=== PATIENT | female | born 1960 | race Caucasian/White ===

== ENCOUNTER 2018-11-29 08:41 | Outpatient (CLI) | payer OTHER ==
--- NOTE | 2018-11-29 11:11 | BD ---
BONE DENSITOMETRY: Indication: Post-menopausal osteoporosis screening. Lumbar Spine: BMD (g/cm2) L1 1.006 T-Score: 0.1 L2 1.203 T-Score: 1.6 L3 1.343 T-Score: 2.4 L4 1.169 T-Score: 1.0 L1-L4 1.182 T-Score: 1.2 Femoral Neck: 0.665 T-Score: -1.7 Total Femur: 0.756 T-Score: -1.5 Impression: 1. Bone mineral density of the femoral neck indicates osteopenia. 2. Bone mineral density of the lumbar spine within normal range. 10-year fracture risk: Major osteoporotic fracture: 9.6% Hip fracture: 1.0% POS: OFF
== END 2018-11-29 08:42 | disposition home or self-care (01) ==
LOC: BICMAMMO 08:41
PROVIDERS: ATTEND Student in an Organized Health Care Education/Training Program
DX: Z13.820 Encounter for screening for osteoporosis (principal); M85.859 Other specified disorders of bone density and structure, unspecified thigh
CPT/HCPCS: 77080

== ENCOUNTER 2019-09-25 12:52 | Emergency (ER) | payer OTHER ==
[2019-09-25] MEDS ORDERED: Ibuprofen 200 MG TAB ONE (13:20)
--- NOTE | 2019-09-25 13:40 | RAD ---
XR Foot Rt 3 View STANDARD INDICATION: Right foot pain after stepping off curb and feeling a pop in the right foot COMPARISON: None. FINDINGS: Bones: No acute fracture identified. Joints: There is osteoarthrosis involving the IP joints of the right foot. Lisfranc alignment: Lisfranc alignment appears within normal limits. Soft tissues: No soft tissue injury demonstrated. No radiographic foreign body demonstrated. IMPRESSION: No acute osseous abnormality.
== END 2019-09-25 14:30 | disposition home or self-care (01) ==
LOC: ERS 12:52
DX: S90.01XA Contusion of right ankle, initial encounter (principal); M79.671 Pain in right foot; F41.9 Anxiety disorder, unspecified; W10.1XXA Fall (on)(from) sidewalk curb, initial encounter

== ENCOUNTER 2021-02-12 09:54 | Emergency (ER) | payer OTHER ==
[2021-02-12] MEDS ORDERED: Fluorescein Opthalmic Strip ONE (11:45)
[2021-02-12] MEDS ORDERED: Proparacaine 0.5% Opth 15 ML BOT ONE (11:45)
== END 2021-02-12 12:35 | disposition home or self-care (01) ==
LOC: ERS 09:54
DX: H10.9 Unspecified conjunctivitis (principal)
CPT/HCPCS: 99283

== ENCOUNTER 2021-02-22 12:02 | Emergency (ER) | payer OTHER | END 2021-02-22 13:08 | disposition home or self-care (01) | LOC: ERS 12:02 | DX: H57.89 Other specified disorders of eye and adnexa (principal); Z79.899 Other long term (current) drug therapy | CPT/HCPCS: 99282 ==

== ENCOUNTER 2022-06-01 14:36 | Emergency (ER) | payer OTHER ==
[~2022-06-01 14:36] MED LIST: Iopamidol-370 76% 500 ML 1 ML ONE
[2022-06-01 15:21] LABS: #Basophils 0.1 thou/uL (0.0-0.2); #Eosinphils 0.2 thou/uL (0.0-0.7); #Monocytes 0.6 thou/uL (0.11-0.59); #Neutrophils 5.1 thou/uL (1.40-6.50); %Eosinophils 1.8 % (0.0-10.0); %Lymphocytes 33.7 % (21.0-51.0); %Monocytes 6.8 % (0.0-10.0); %Neutrophils 56.8 % (42.0-75.0); Hemoglobin 16.5 g/dL (12.0-16.0); Mean Corpuscular HGB CONC 33.2 g/dL (32.0-36.0); Mean Platelet Volume 10.1 fL (7.4-10.4); Platelet Count 189 10x3/uL (130-400); RBC Distribution Width 12.3 % (11.5-14.5); Red Blood Cell (RBC) Count 4.85 mill/uL (4.20-5.40)
[2022-06-01] MEDS ORDERED: Ketorolac Tromethamine 30 MG/ML VIAL ONE (15:37)
[2022-06-01 15:42] LABS: ALT (SGPT) 19 U/L (8-55); AST (SGOT) 17 U/L (5-34); Albumin 4.3 g/dL (3.4-4.8); Alkaline Phosphatase 71 U/L (40-110); Anion Gap 14 mmol/L (10-20); BUN (Urea Nitrogen) 21 mg/dL (9.8-20.1); Bilirubin, Total 0.5 mg/dL (0.2-1.2); Calc. Creatinine Clearance 0 mL/min (70-130); Calcium 9.6 mg/dL (7.8-10.44); Carbon Dioxide 23 mmol/L (23-31); Chloride 107 mmol/L (98-107); Estimated GFR 100; Globulin 2.6 g/dL (2.4-3.5); Glucose 94 mg/dL (80-115); Potassium 3.9 mmol/L (3.5-5.1); Protein, Total 6.9 g/dL (5.8-8.1); Sodium 140 mmol/L (136-145)
== END 2022-06-01 17:06 | disposition home or self-care (01) ==
LOC: ERS 14:36
DX: M54.12 Radiculopathy, cervical region (principal); W10.8XXA Fall (on) (from) other stairs and steps, initial encounter
CPT/HCPCS: 71260; 72125; 74177; 80053; 85025; 96374; J1885; Q9967

== ENCOUNTER 2022-08-17 11:05 | Outpatient (CLI) | payer OTHER | END 2022-08-17 11:06 | disposition home or self-care (01) | LOC: BICCT 11:05 | PROVIDERS: ATTEND Specialist | DX: J32.9 Chronic sinusitis, unspecified (principal); J34.89 Other specified disorders of nose and nasal sinuses ==

== ENCOUNTER 2023-01-21 09:41 | Outpatient (CLI) | payer OTHER | END 2023-01-21 09:42 | disposition home or self-care (01) | LOC: BICCT 09:41 | PROVIDERS: ATTEND Student in an Organized Health Care Education/Training Program | DX: R91.1 Solitary pulmonary nodule (principal); K44.9 Diaphragmatic hernia without obstruction or gangrene; N20.0 Calculus of kidney; J43.9 Emphysema, unspecified; J47.9 Bronchiectasis, uncomplicated | CPT/HCPCS: 71250 ==

== ENCOUNTER 2023-08-10 12:35 | Outpatient (CLI) | payer OTHER | END 2023-08-10 12:36 | disposition home or self-care (01) | LOC: BICCT 12:35 | PROVIDERS: ATTEND Internal Medicine | DX: R91.1 Solitary pulmonary nodule (principal) | CPT/HCPCS: 71250 ==

== ENCOUNTER 2023-08-18 12:30 | Outpatient (CLI) | payer OTHER | END 2023-08-18 12:31 | LOC: PET 12:30 | PROVIDERS: ATTEND Internal Medicine | DX: R91.1 Solitary pulmonary nodule (principal) | CPT/HCPCS: 78815; A9552 ==

== ENCOUNTER 2023-08-26 08:40 | Day surgery (SDC) | payer OTHER ==
[2023-08-26 08:58] LABS: #Basophils 0.1 thou/uL (0.0-0.2); #Eosinphils 0.3 thou/uL (0.0-0.7); #Monocytes 0.5 thou/uL (0.11-0.59); #Neutrophils 3.6 thou/uL (1.40-6.50); %Basophils 0.9 % (0.0-1.0); %Eosinophils 4.4 % (0.0-10.0); %Lymphocytes 34.1 % (21.0-51.0); %Monocytes 6.7 % (0.0-10.0); %Neutrophils 53.2 % (42.0-75.0); Hematocrit 47.9 % (36.0-47.0); Hemoglobin 16.5 g/dL (12.0-16.0); Mean Corpuscular HGB CONC 34.4 g/dL (32.0-36.0); Mean Corpuscular Hemoglobin 34.4 pg (27.0-31.0); Mean Platelet Volume 11.3 fL (7.4-10.4); Platelet Count 218 10x3/uL (130-400); RBC Distribution Width 13.7 % (11.5-14.5); Red Blood Cell (RBC) Count 4.79 mill/uL (4.20-5.40); White Blood Cell (WBC) Count 6.8 10x3/uL (4.8-10.8)
[2023-08-26 09:11] LABS: Prothrombin Time 13.2 sec (12.0-14.7)
[2023-08-26 09:12] LABS: PTT 24.5 sec (22.9-36.1)
[2023-08-26] MEDS ORDERED: Sodium Bicarbonate 2.5 MEQ/5 ML SDV ONE (10:11)
[2023-08-26] MEDS ORDERED: fentaNYL 50 mcg/mL 1 mL Vial ONE (10:11)
[2023-08-26] MEDS ORDERED: Midazolam HCl 2 mg/2 ml Vial ONE (10:11)
[2023-08-26] MEDS ORDERED: Lidocaine 1% w/Epinephrine 1:100K 20 ML VIAL ONE (11:05)
[2023-08-26] MEDS ORDERED: FLU VACC QS2023-24(6MOS UP)/PF 60 MCG/0.5 ML SYRINGE IM ONE (14:00)
== END 2023-08-26 15:15 | disposition home or self-care (01) ==
LOC: CT 08:40
PROVIDERS: ATTEND Internal Medicine
PROC: 0BBD3ZX Excision of Right Middle Lung Lobe, Percutaneous Approach, Diagnostic (ICD-10-PCS; principal; 2023-08-26)
DX: R91.1 Solitary pulmonary nodule (principal); J60 Coalworker's pneumoconiosis; I10 Essential (primary) hypertension; J18.9 Pneumonia, unspecified organism; Z85.118 Personal history of other malignant neoplasm of bronchus and lung
CPT/HCPCS: 32408; 71045; 77002; 85025; 85610; 85730; 88305; 88333; 88334; J2250; J3010

== ENCOUNTER 2023-08-27 09:57 | Outpatient (CLI) | payer OTHER | END 2023-08-27 09:58 | disposition home or self-care (01) | LOC: RAD 09:57 | PROVIDERS: ATTEND Radiology Diagnostic Neuroimaging | DX: Z01.818 Encounter for other preprocedural examination (principal); J95.811 Postprocedural pneumothorax | CPT/HCPCS: 71045 ==

== ENCOUNTER 2023-08-27 10:40 | Inpatient (IN) | payer OTHER ==
[2023-08-27 11:11] LABS: #Basophils 0.1 thou/uL (0.0-0.2); #Eosinphils 0.1 thou/uL (0.0-0.7); #Monocytes 0.5 thou/uL (0.11-0.59); #Neutrophils 4.6 thou/uL (1.40-6.50); %Basophils 0.7 % (0.0-1.0); %Eosinophils 1.5 % (0.0-10.0); %Lymphocytes 34.1 % (21.0-51.0); %Monocytes 6.3 % (0.0-10.0); Hematocrit 49.7 % (36.0-47.0); Hemoglobin 17.6 g/dL (12.0-16.0); Mean Corpuscular HGB CONC 35.4 g/dL (32.0-36.0); Mean Corpuscular Hemoglobin 34.6 pg (27.0-31.0); Mean Corpuscular Volume 97.8 fl (78.0-98.0); Mean Platelet Volume 11.6 fL (7.4-10.4); Platelet Count 221 10x3/uL (130-400); RBC Distribution Width 13.5 % (11.5-14.5); Red Blood Cell (RBC) Count 5.08 mill/uL (4.20-5.40)
[2023-08-27 11:26] LABS: ALT (SGPT) 17 U/L (8-55); AST (SGOT) 18 U/L (5-34); Albumin 4.6 g/dL (3.4-4.8); Alkaline Phosphatase 77 U/L (40-110); Anion Gap 11 mmol/L (10-20); BUN (Urea Nitrogen) 11 mg/dL (9.8-20.1); Bilirubin, Total 1.5 mg/dL (0.2-1.2); Calc. Creatinine Clearance 0 mL/min (70-130); Calcium 9.8 mg/dL (7.8-10.44); Carbon Dioxide 27 mmol/L (23-31); Chloride 105 mmol/L (98-107); Estimated GFR 98; Glucose 110 mg/dL (80-115); Potassium 3.9 mmol/L (3.5-5.1); Protein, Total 7.6 g/dL (5.8-8.1); Sodium 139 mmol/L (136-145)
[2023-08-27] MEDS ORDERED: Acetaminophen 325 MG TAB PO PRN (13:42)
[2023-08-27] MEDS ORDERED: Electrolyte Replacement Protocol 1 EACH FS SCH (14:00)
[2023-08-27 14:10] LABS: Phosphorus 1.8 mg/dL (2.3-4.7)
[2023-08-27] MEDS ORDERED: fentaNYL 50 mcg/mL 1 mL Vial ONE (15:10)
[2023-08-27 15:54] VITALS: BMI 26.0
[2023-08-27] MEDS: Ketorolac Tromethamine 30 MG (1 mL) VIAL IVP PRN (16:42)
[2023-08-27] MEDS: Thiamine HCl 200 MG/2 ML VIAL SLOW IVP SCH (16:43)
[2023-08-27] MEDS: hydrALAZINE 20 MG/ML VIAL SLOW IVP SCH (17:56)
[2023-08-27] MEDS: Morphine 2 MG/ML VIAL SLOW IVP PRN (18:46)
[2023-08-27] MEDS: Lorazepam 2 MG/ML VIAL ONE (19:07)
[2023-08-27] MEDS: Lorazepam 2 MG/ML VIAL SLOW IVP SCH (19:20)
[2023-08-27] MEDS ORDERED: Labetalol HCl 100 MG/20 ML VIAL SLOW IVP PRN (19:57)
[2023-08-27] MEDS: Multivit, Therapeutic 1 TAB PO SCH (20:24)
[2023-08-27] MEDS: Folic Acid 1 MG TAB PO SCH (20:24)
[2023-08-27] MEDS: Acetaminophen 325 MG TAB PO PRN (20:25)
[2023-08-27] MEDS: Ondansetron ODT 4 MG TAB PO PRN (20:30)
[2023-08-27] MEDS ORDERED: Lorazepam 2 MG/ML VIAL SLOW IVP PRN (23:00)
[2023-08-28] MEDS: Melatonin 3 MG TAB PO SCH ×2 (01:27→21:09)
[2023-08-28 05:42] LABS: #Eosinphils 0.1 thou/uL (0.0-0.7); #Monocytes 0.5 thou/uL (0.11-0.59); #Neutrophils 4.7 thou/uL (1.40-6.50); %Basophils 0.3 % (0.0-1.0); %Lymphocytes 22.3 % (21.0-51.0); %Monocytes 7.5 % (0.0-10.0); %Neutrophils 68.8 % (42.0-75.0); Hematocrit 45.3 % (36.0-47.0); Hemoglobin 15.8 g/dL (12.0-16.0); Mean Corpuscular HGB CONC 34.9 g/dL (32.0-36.0); Mean Corpuscular Hemoglobin 34.9 pg (27.0-31.0); Mean Platelet Volume 11.8 fL (7.4-10.4); Platelet Count 205 10x3/uL (130-400); RBC Distribution Width 13.9 % (11.5-14.5); Red Blood Cell (RBC) Count 4.53 mill/uL (4.20-5.40); White Blood Cell (WBC) Count 6.9 10x3/uL (4.8-10.8)
[2023-08-28 06:06] LABS: Anion Gap 14 mmol/L (10-20); BUN (Urea Nitrogen) 18 mg/dL (9.8-20.1); Calc. Creatinine Clearance 81 mL/min (70-130); Carbon Dioxide 24 mmol/L (23-31); Chloride 104 mmol/L (98-107); Estimated GFR 96; Glucose 119 mg/dL (80-115); Potassium 3.6 mmol/L (3.5-5.1); Sodium 138 mmol/L (136-145)
[2023-08-28 06:07] LABS: ALT (SGPT) 14 U/L (8-55); AST (SGOT) 17 U/L (5-34); Albumin 3.9 g/dL (3.4-4.8); Alkaline Phosphatase 61 U/L (40-110); Bilirubin, Total 0.8 mg/dL (0.2-1.2); Calcium 9.1 mg/dL (7.8-10.44); Globulin 2.5 g/dL (2.4-3.5); Protein, Total 6.4 g/dL (5.8-8.1)
[2023-08-28] MEDS: Enoxaparin 40 MG (0.4 mL) SYRINGE SC SCH (08:37)
[2023-08-28] MEDS: PHOS-NAK 1 PKT PACK PO SCH (08:38)
[2023-08-28] MEDS: Magnesium 2 GM/50 ML(in water) 2 GM in Premix 1 BAG IVPB SCH (08:38)
[2023-08-28] MEDS ORDERED: traMADol HCl 50 MG TAB PO PRN (09:41)
[2023-08-28] MEDS: Acetaminophen 500 MG TAB PO SCH (11:29)
[2023-08-28] MEDS: Ketorolac Tromethamine 30 MG (1 mL) VIAL IVP SCH (11:30)
[2023-08-28] MEDS: Lidocaine 4% Patch TD SCH (11:30)
[2023-08-28] MEDS: Gabapentin 300 MG CAP PO SCH (14:37)
[2023-08-29 05:49] LABS: #Basophils 0.1 thou/uL (0.0-0.2); #Eosinphils 0.3 thou/uL (0.0-0.7); #Monocytes 0.6 thou/uL (0.11-0.59); %Basophils 0.8 % (0.0-1.0); %Eosinophils 4.9 % (0.0-10.0); %Lymphocytes 38.5 % (21.0-51.0); %Monocytes 8.8 % (0.0-10.0); %Neutrophils 46.5 % (42.0-75.0); Hematocrit 45.4 % (36.0-47.0); Hemoglobin 15.3 g/dL (12.0-16.0); Mean Corpuscular HGB CONC 33.7 g/dL (32.0-36.0); Mean Corpuscular Hemoglobin 33.8 pg (27.0-31.0); Mean Corpuscular Volume 100.2 fl (78.0-98.0); Mean Platelet Volume 11.9 fL (7.4-10.4); Platelet Count 211 10x3/uL (130-400); Red Blood Cell (RBC) Count 4.53 mill/uL (4.20-5.40); White Blood Cell (WBC) Count 6.5 10x3/uL (4.8-10.8)
[2023-08-29 06:37] LABS: ALT (SGPT) 15 U/L (8-55); AST (SGOT) 23 U/L (5-34); Albumin 3.6 g/dL (3.4-4.8); Alkaline Phosphatase 53 U/L (40-110); Anion Gap 13 mmol/L (10-20); BUN (Urea Nitrogen) 30 mg/dL (9.8-20.1); Bilirubin, Total 0.6 mg/dL (0.2-1.2); Calc. Creatinine Clearance 71 mL/min (70-130); Carbon Dioxide 21 mmol/L (23-31); Chloride 108 mmol/L (98-107); Estimated GFR 82; Globulin 2.7 g/dL (2.4-3.5); Glucose 90 mg/dL (80-115); Protein, Total 6.3 g/dL (5.8-8.1); Sodium 138 mmol/L (136-145)
[2023-08-29 11:49] VITALS: BP 122/80; TEMP 98.1
[2023-08-30] MEDS ORDERED: Thiamine 100 MG TAB PO SCH (09:00)
== END 2023-08-29 12:17 | disposition home or self-care (01) | DRG 201 ==
LOC: ERS 10:40 → SURG A 13:35 → OBSVTOIN 08-28 12:41
PROVIDERS: ADMIT Student in an Organized Health Care Education/Training Program; ATTEND Student in an Organized Health Care Education/Training Program
PROC: 0W9930Z Drainage of Right Pleural Cavity with Drainage Device, Percutaneous Approach (ICD-10-PCS; principal; 2023-08-27)
DX: J95.811 Postprocedural pneumothorax (principal); F41.9 Anxiety disorder, unspecified; F43.10 Post-traumatic stress disorder, unspecified; R91.1 Solitary pulmonary nodule; D75.1 Secondary polycythemia; E80.6 Other disorders of bilirubin metabolism; Z88.1 Allergy status to other antibiotic agents; Z98.890 Other specified postprocedural states; Z88.5 Allergy status to narcotic agent; Z90.710 Acquired absence of both cervix and uterus
CPT/HCPCS: 36415; 71045; 80053; 83735; 84100; 85025; 93005; 96365; 96372; 96374; 96375; 96376; G0378; J0360; J1650; J1885; J2060; J2272; J3010; J3411; J3475; Q0162

== ENCOUNTER 2023-11-17 08:10 | Outpatient (CLI) | payer OTHER | END 2023-11-17 08:11 | disposition home or self-care (01) | LOC: CT 08:10 | PROVIDERS: ATTEND Internal Medicine | DX: R91.8 Other nonspecific abnormal finding of lung field (principal) | CPT/HCPCS: 71250 ==

== ENCOUNTER 2025-05-22 12:31 | Outpatient (CLI) | payer OTHER | END 2025-05-22 12:32 | disposition home or self-care (01) | LOC: BICCT 12:31 | PROVIDERS: ATTEND Internal Medicine | DX: R91.8 Other nonspecific abnormal finding of lung field (principal) | CPT/HCPCS: 71250 ==